=== PATIENT | male | born 1985 | race American Indian/Alaskan Native ===

== ENCOUNTER 2019-09-07 12:01 | Emergency (ER) | payer SELFPAY ==
[2019-09-07 13:17] VITALS: BP 140/93
--- NOTE | 2019-09-07 13:18 | Emergency Department Report ---
Chief Complaint: Urogenital-Male Stated Complaint: DISCHARGE/DISCOMFORT URETHRA Time Seen by Provider: 09/07/19 13:17 - HPI History of Present Illness: 33 y/o male p/w painless urethral discharge no other complaints no emergent condition identified counseling and resources provided and discussed S1, S2, regular rate and rhythm. No murmurs, rubs or gallops. Breath sounds clear to auscultation bilaterally. Abdomen soft and benign, with no rebound, guarding or peritoneal signs. Head is normocephalic atraumatic. The neck is supple. There is no adenopathy. Extraocular movements are intact. there is no facial droop. The tongue is midline. The extraocular movements are intact bilaterally. Hearing is intact. Phonation is within normal limits. Speech is fluid and luccid. There is 5 out of 5 strength in 4 extremities. Sensation is intact to light touch in 4 extremities. in. There is a normal gait. Vital Signs 09/07/19 13:15 Temperature 98.2 F Pulse Rate 89 Respiratory 18 Rate Blood Pressure 140/93 O2 Sat by Pulse 100 Oximetry MSE screening note: Focused history and physical exam performed. Due to findings the following was ordered: ED Disposition for MSE Clinical Impression: Encounter for medical screening examination Disposition: Z-01 MED SCREENING EXAM-CONT Is pt being admited?: No Does the pt Need Aspirin: No Condition: Stable Additional Instructions: practice safe sex follow up with an outpatient d health dept [facility] care return right away if worse Referrals: MELANIE MARTINEZ MD [Staff Physician] - 3-5 Days [facility] [Provider Group] - 3-5 Days [facility] [Provider Group] - 3-5 Days [facility] [Outside] - 3-5 Days
== END 2019-09-07 13:40 | disposition home or self-care (01) ==
LOC: ED 12:01
DX: Z00.00 Encounter for general adult medical examination without abnormal findings (principal)
CPT/HCPCS: 99281